=== PATIENT | female | born 1985 ===

== ENCOUNTER 2020-03-29 16:28 | Outpatient (CLI) | payer SELFPAY ==
[2020-03-29 23:26] LABS: CANDIDA GROUP DNA NEGATIVE (NEGATIVE); CANDIDA KRUSEI DNA NEGATIVE (NEGATIVE); TRICHOMONAS VAGINALIS DNA NEGATIVE (NEGATIVE)
== END 2020-03-29 23:59 | disposition home or self-care (01) ==
LOC: LAB.R 16:28
PROVIDERS: ATTEND Physician Assistant
DX: R30.0 Dysuria (principal)
CPT/HCPCS: 87086; 87661; 87801